=== PATIENT | female | born 1965 | race Caucasian/White ===

== ENCOUNTER 2021-03-30 15:12 | Observation (INO) | payer OTHER, SELFPAY ==
[2021-03-30] VITALS (15 sets, daily range): BP systolic 100–162; BP diastolic 56–91; PULSE 78–106; RESP 12–18; TEMP 36.9–43; O2SAT 95–98; BMI 29.2
--- NOTE | 2021-03-30 15:39 | HMH.EDGENADL ---
ED Disposition Clinical Impression: Acute appendicitis Qualifiers: Acute appendicitis type: with localized peritonitis Appendicitis gangrene presence: without gangrene Appendicitis perforation presence: without perforation Appendicitis abscess presence: without abscess Qualified Code(s): K35.30 - Acute appendicitis with localized peritonitis, without perforation or gangrene Disposition: Still a Patient Condition on Discharge: Fair Referrals: Mary Carmen Charlton [Primary Care Provider] - - Critical Care Critical Care Time: No Attestation: On 03/30/21, the high probability of a clinically significant, sudden or life threatening deterioration of the following system(s) required my full and direct attention, intervention and personal management. The time I documented below is in addition to time spent performing reported procedures but includes the following listed in this critical care notation. Medical Decision Making - Arley Inquiry Pt receiving controlled substance: Yes Arley was queried for this patient: Yes Risks and benefits of using a controlled substance: were discussed with pt by me Vital Signs: 03/30/21 15:13 Temperature 98.4 F Temperature Source Oral Pulse Rate [Left Radial] 106 H Respiratory Rate 18 Blood Pressure [Left Arm] 122/91 H Blood Pressure Mean [Left Arm] 101 Blood Pressure Source [Left Arm] Automatic Cuff Blood Pressure Position [Left Arm] Sitting 02 Sat by Pulse Oximetry 98 Oxygen Delivery Method Room Air - Lab Data Lab Results 03/30/21 15:35: Urine Color Yellow, Urine Appearance Clear, Urine pH 6.0, Ur Specific [place] 1.020, Urine Protein Negative, Urine Glucose (UA) Negative, Urine Ketones Trace, Urine Blood Trace-i, Urine Nitrate Negative, Urine Bilirubin Negative, Urine Urobilinogen 0.2, Ur Leukocyte Esterase Negative, Urine RBC Occasional, Urine WBC None, Ur Squamous Epith Cells 5-10, Urine Bacteria None 03/30/21 15:35: WBC 5.7, RBC 4.32, Hgb 14.0, Hct 40.3, MCV 93.4, MCH 32.5 H, MCHC 34.8, RDW 13.0, Plt Count 321, MPV 7.4, Neut % (Auto) 61.2, Lymph % (Auto) 25.9, [place] % (Auto) 10.5 H, Eos % (Auto) 1.4, Baso % (Auto) 1.0, Neut # (Auto) 3.5, Lymph # (Auto) 1.5, [place] # (Auto) 0.6, Eos # (Auto) 0.1, Baso # (Auto) 0.1 03/30/21 15:35: Sodium 128 L, Potassium 3.9, Chloride 89 L, Carbon Dioxide 29, Anion Gap 13.9, BUN 8, Creatinine 0.90, Estimated Creat Clear 87, Estimated GFR 65, Est GFR ( Amer) 79, Glucose 114 H, Calcium 9.7, Total Bilirubin 0.9, AST 50 H, ALT 65, Alkaline Phosphatase 92, Total Protein 7.9, Albumin 4.7, Globulin 3.2, Albumin/Globulin Ratio 1.5, Amylase 48, Lipase 62 Result diagrams: 03/30/21 15:35 03/30/21 15:35 Orders (Tests/Meds): ED MEDICATIONS Generic Name Dose Route Start Last Admin Trade Name Freq PRN Reason Stop Dose Admin Hydromorphone HCl 1 mg 03/30/21 17:23 Hydromorphone 4 Mg/Ml Syringe IV 03/30/21 17:24 ONCE ONE Ondansetron HCl 4 mg 03/30/21 17:23 Ondansetron 4mg/2ml Vial IV 03/30/21 17:24 ONCE ONE Discontinued Medications Generic Name Dose Route Start Last Admin Trade Name Freq PRN Reason Stop Dose Admin Iopamidol 70 ml 03/30/21 16:14 03/30/21 16:15 Iopamidol-370 (76%);100ml Bottle IV 03/30/21 16:15 70 ml ONCE ONE Administration Sodium Chloride 1,000 ml 03/30/21 15:49 03/30/21 15:55 Sodium Chloride 0.9% 1000ml Bag IV 03/30/21 15:50 1,000 ml BOLUS ONE Administration Sodium Chloride 10 ml 03/30/21 16:14 03/30/21 16:15 Sodium Chloride 0.9% 10ml Syr (Rad Only) IV 03/30/21 16:15 10 ml ONCE ONE Administration - CT Data CT Scan: Abdomen, Pelvis Time Received: 17:[address] Reviewed: Yes: I discussed the CT results w/the radiologist, I have viewed the radiologist's interpretation Findings Narrative: PROCEDURE INFORMATION: Exam: CT Abdomen And Pelvis With Contrast Exam date and time: 03/30/2021 3:40 PM Age: 55 years old Clinical indication: Abdominal pain; Localized; Right low
--- NOTE | 2021-03-30 15:40 | CT_ITS ---
PROCEDURE INFORMATION: Exam: CT Abdomen And Pelvis With Contrast Exam date and time: 03/30/2021 3:40 PM Age: 55 years old Clinical indication: Abdominal pain; Localized; Right lower quadrant (rlq); Additional info: Rlq pain TECHNIQUE: Imaging protocol: Computed tomography of the abdomen and pelvis with contrast. Radiation optimization: All CT scans at this facility use at least one of these dose optimization techniques: automated exposure control; mA and/or kV adjustment per patient size (includes targeted exams where dose is matched to clinical indication); or iterative reconstruction. Contrast material: ISOVUE; Contrast volume: 75 ml; Contrast route: IV; COMPARISON: No relevant prior studies available. FINDINGS: Lungs: No acute findings in the visualized lower lungs. No consolidation. Liver: Heterogeneous liver attenuation/enhancement, most likely extensive patchy fatty change. Upper normal liver size. No discrete mass. Gallbladder and bile ducts: The gallbladder is unremarkable. No calcified stones or biliary dilatation. Pancreas: The pancreas is normal. Spleen: The spleen is normal. Adrenal glands: The adrenal glands are normal. Kidneys and ureters: The kidneys are normal. The ureters are normal. Stomach and bowel: There is no evidence of intestinal perforation or obstruction.The stomach is normal. Appendix: Findings of acute appendicitis. The appendix is distended with fluid, measuring up to 1.3 cm diameter, with prominent surrounding mesenteric edema/infiltrative changes. There is trace fluid in the right pericolic gutter. No organized abscess collection. No extraluminal gas bubbles. No calcified appendicolith. Intraperitoneal space: There is no free intraperitoneal air. Trace fluid in the right pericolic gutter, no organized abscess collection. Vasculature: There is no aortic aneurysm.The vasculature demonstrates scattered mild atherosclerotic calcification. No portal venous gas. Lymph nodes: No significantly enlarged lymph nodes by short axis criteria. Urinary bladder: The bladder is normal. Reproductive: Post hysterectomy. No acute reproductive findings. Bones/joints: There are spinal degenerative changes, with multilevel disc disease and spondylosis, facet arthropathy. No acute fracture or high-grade listhesis. Soft tissues: There are no soft tissue masses or fluid collections. IMPRESSION: 1. Findings of acute appendicitis; dilated fluid-filled appendix with prominent surrounding mesenteric edema and trace pericolic fluid. No organized abscess collection or extraluminal gas bubbles. 2. Additional nonemergency and chronic appearing findings as above.
[2021-03-30 15:51] LABS: Microscopic, Urine URINE MICROSCOPIC (MICROSCOPIC)
[2021-03-30 15:56] LABS: Basophils # 0.1 K/mm3 (0-0.2); Eosinophils # 0.1 K/mm3 (0.0-0.4); Eosinophils % 1.4 % (0.1-12.0); Hematocrit 40.3 % (37.0-47.0); Lymphocytes # 1.5 K/mm3 (0.7-4.5); Lymphocytes % 25.9 % (10-50); Mean Corpuscular HGB Conc 34.8 g/dL (31.8-35.4); Mean Corpuscular Hemoglobin 32.5 pg (27.0-31.2); Mean Corpuscular Volume 93.4 fl (81-99); Mean Platelet Volume 7.4 fl (7.4-10.4); Monocytes # 0.6 K/mm3 (0.1-1.0); Monocytes % 10.5 % (1.7-9.3); Neutrophils # 3.5 K/mm3 (1.8-7.8); Neutrophils % 61.2 % (37.0-80.0); Platelet Count 321 K/mm3 (142-424); Red Blood Count 4.32 M/mm3 (4.20-5.40); White Blood Count 5.7 K/mm3 (4.8-10.8)
[2021-03-30 16:00] LABS: Appearance,Urine CLEAR (Clear); Bilirubin,Urine Negative (Negative); Blood, Urine TRACE-I (Negative); Color,Urine YELLOW (Yellow); Glucose,Urine (UA) Negative (Negative); Ketones,Urine TRACE (Negative); Leukocyte Esterase,Urine Negative (Negative); Nitrate,Urine Negative (Negative); Protein,Urine Negative (Negative); Urobilinogen,Urine 0.2 EU/dl (0.2)
[2021-03-30 16:02] LABS: Chloride 89 mmol/L (98-107); Potassium 3.9 mmoL/L (3.5-5.1); Sodium 128 mmol/L (136-145)
[2021-03-30 16:04] LABS: Amylase 48 U/L (30-110); Blood Urea Nitrogen 8 mg/dl (7-17); Creatinine Clearance Estimated 87 mL/min (50-200); Estimated Glomerular Filt Rate 65 ml/min (>60); GFR (African American) 79 ML/MIN (>60)
[2021-03-30 16:05] LABS: Alanine Aminotransferase 65 U/L (12-78); Albumin Level 4.7 g/dl (3.5-5.0); Albumin/Globulin Ratio 1.5 (1.1-1.8); Alkaline Phosphatase 92 U/L (38-126); Anion Gap 13.9 mEq/L (5-15); Aspartate Amino Transferase 50 U/L (14-36); Bilirubin,Total 0.9 mg/dl (0.2-1.3); Calcium 9.7 mg/dl (8.4-10.2); Carbon Dioxide 29 mmol/L (22.0-30.0); Globulin 3.2 g/dL (1.3-3.2); Glucose 114 mg/dl (74-100); Lipase 62 U/L (23-300); Total Protein,Serum 7.9 g/dl (6.3-8.2)
[2021-03-30 16:19] LABS: RBC,Urine Occasional #/hpf (0-3)
--- NOTE | 2021-03-30 16:21 | PC.NURSE ---
Pt returned from RAD
--- NOTE | 2021-03-30 17:20 | PC.NURSE ---
speaking with Dr Guajardo at this time.
--- NOTE | 2021-03-30 17:35 | PC.NURSE ---
COVID swab sent to lab at this time.
[2021-03-30 17:37] LABS: Coronavirus 19, PCR Not Detected (NotDetected); Influenza A, PCR Not Detected (NotDetected); Influenza B, PCR Not Detected (NotDetected)
--- NOTE | 2021-03-30 17:42 | PC.NURSE ---
[id number] Guajardo to page the surgery team for appendectomy. calls returned as follows: [phone] Carl [id number] Negar [phone] Kaila
--- NOTE | 2021-03-30 17:55 | PC.NURSE ---
Dr Guajardo at bedside
--- NOTE | 2021-03-30 17:56 | PC.NURSE ---
Dr Guajardo at bedside
--- NOTE | 2021-03-30 18:14 | HMH.GSHP ---
HPI HPI: Patient is a 55-year-old pleasant female. She states that 2 days ago she had some diarrhea. She had taken some Imodium. Yesterday on 03/29/2021 she had developed some right-sided abdominal pain with associated dry heaves. This had transiently improved overnight but then recurred this morning. Due to its recurrence and severity she presented to the emergency department. She was seen and evaluated. Work-up included CT scan which revealed dilated fluid-filled appendix with inflammatory changes consistent with acute appendicitis. Surgical consultation was obtained. [facility] History I have reviewed the patient's past medical history: Yes *Have you ever received a pneumonia vaccine?: No *Have you received a flu vaccine this season?: No - *Social History Smoking Status: Unknown if ever smoked Alcohol Intake: former Substance Use Type: denies use *Occupational Status:: other *Travel in the last 8 weeks: None Family Hx:: Non-contributory Review of Systems - Review of Systems Review of systems:: pertinent systems reviewed and negative unless documented below Meds Allergies Allergy/AdvReac Type Severity Reaction Status Date / Time No Known Allergies Allergy Verified 03/30/21 15:40 Exam Vital signs and Labs for Last 24 Hours: Temp Pulse Resp BP Pulse Ox 98.4 F 106 H 18 122/91 H 98 03/30/21 15:13 03/30/21 15:13 03/30/21 15:13 03/30/21 15:13 03/30/21 15:13 Laboratory Results - last 24 hr 03/30/21 15:35: Urine Color Yellow, Urine Appearance Clear, Urine pH 6.0, Ur Specific [place] 1.020, Urine Protein Negative, Urine Glucose (UA) Negative, Urine Ketones Trace, Urine Blood Trace-i, Urine Nitrate Negative, Urine Bilirubin Negative, Urine Urobilinogen 0.2, Ur Leukocyte Esterase Negative, Urine RBC Occasional, Urine WBC None, Ur Squamous Epith Cells 5-10, Urine Bacteria None 03/30/21 15:35: WBC 5.7, RBC 4.32, Hgb 14.0, Hct 40.3, MCV 93.4, MCH 32.5 H, MCHC 34.8, RDW 13.0, Plt Count 321, MPV 7.4, Neut % (Auto) 61.2, Lymph % (Auto) 25.9, [place] % (Auto) 10.5 H, Eos % (Auto) 1.4, Baso % (Auto) 1.0, Neut # (Auto) 3.5, Lymph # (Auto) 1.5, [place] # (Auto) 0.6, Eos # (Auto) 0.1, Baso # (Auto) 0.1 03/30/21 15:35: Sodium 128 L, Potassium 3.9, Chloride 89 L, Carbon Dioxide 29, Anion Gap 13.9, BUN 8, Creatinine 0.90, Estimated Creat Clear 87, Estimated GFR 65, Est GFR ( Amer) 79, Glucose 114 H, Calcium 9.7, Total Bilirubin 0.9, AST 50 H, ALT 65, Alkaline Phosphatase 92, Total Protein 7.9, Albumin 4.7, Globulin 3.2, Albumin/Globulin Ratio 1.5, Amylase 48, Lipase 62 03/30/21 17:32: SARS-CoV-2 (PCR) Not detected, Influenza A Untype (PCR) Not detected, Influenza Type B (PCR) Not detected I & O for Last 24 hours: Intake & Output 03/28/21 03/29/21 03/30/21 03/31/21 11:59 11:59 11:59 11:59 Weight 170 lb - Constitutional no acute distress - *Routine HEENT Exam Head: Present: normocephalic Eye: Present: EOMI, PERRL ENT: Present: mucous membranes moist - *Routine Neck Exam Present: supple. Absent: lymphadenopathy - *Routine Respiratory Exam Present: CTA bilaterally - *Routine Cardiovascular Exam Present: RRR - *Routine Abdominal Exam Present: soft, normoactive bowel sounds, tenderness Comments: She is tender in the right lower quadrant and right upper quadrant. - *Routine Rectal Exam Rectal:: deferred - *Routine Genitalia Exam Genitalia:: deferred - *Routine Extremities Exam Absent: cyanosis, clubbing, edema - *Routine Skin Exam Present: warm. Absent: rash - *Routine Neurological Exam Present: alert, oriented X3 Results - Results Lab Results Last 24 Hours:: Laboratory Results - last 24 hr 03/30/21 15:35: Urine Color Yellow, Urine Appearance Clear, Urine pH 6.0, Ur Specific [place] 1.020, Urine Protein Negative, Urine Glucose (UA) Negative, Urine Ketones Trace, Urine Blood Trace-i, Urine Nitrate Negative, Urine Bilirubin Negative, Urine Urobilinogen 0.2, Ur Leukocyte Esterase Ne
--- NOTE | 2021-03-30 19:08 | HMH.ANESCL ---
[facility] Anesthesia Checklist - Patient Identification Patient Identification: Arm Band - Structural Data Planned Operative Procedure/s: Laparoscopic Appendectomy Consent for Planned Operative Procedure(s) Verified: Yes Verified Documents: Surgical Consent, History and Physical - NPO Status Verified Time NPO: 11:00 - Additional verifications Anesthesia Reactions: No - Airway Assessment C-Spine Mobility Assessed: Yes (mp2) TMJ Mobility Assessed: Yes Dentition: Good Dentition - Neurological Assessment Level of Consciousness: Awake, Alert - Anesthesia Plan Anesthesia Risk discussed: Yes Anesthesia Plan: Verified ASA Class: II (e) Anesthesia Type: General [facility] History I have reviewed the patient's past medical history: Yes Medical History: Reports:: Anxiety, Hypertension *Have you ever received a pneumonia vaccine?: No *Have you received a flu vaccine this season?: No Other Medical History: Reports: Hypothyroidism Anesthesia experience/problems:: nac Other Surgeries: Yes: Hysterectomy-Total, Other - *Social History Smoking Status: Unknown if ever smoked Alcohol Intake: former Alcohol Intake Frequency:: other Substance Use Type: denies use *Occupational Status:: other *Travel in the last 8 weeks: None Family Hx:: Non-contributory
--- NOTE | 2021-03-30 20:38 | HMH.ANESI ---
[facility] Anesthesia Record Part I Intake, IV Amount: 1,200 Estimated blood loss (mL): 10 Urine output (mL): 600 Blood Pressure: 162/78 SaO2: 95 Pulse Rate: 101 Respiratory Rate: 16 Temperature: 99.3 F Patient is:: Drowsy, Stable Stable to PACU at:: 20:30
--- NOTE | 2021-03-30 20:41 | HMH.OPNOTE ---
Date of procedure: 03/30/21 Pre-op Diagnosis:: Acute appendicitis Post-op Diagnosis:: Same Procedure performed:: Laparoscopic appendectomy Surgeon:: Ren Guajardo MD INSPECTOR ELECTROMECHANICAL:: Carl Shafer Anesthesia: VIOLA Estimated blood loss (mL): 40 Clinical Note:: Patient is a 55-year-old pleasant female. She states that 2 days ago she had some diarrhea. She had taken some Imodium. Yesterday on 03/29/2021 she had developed some right-sided abdominal pain with associated dry heaves. This had transiently improved overnight but then recurred this morning. Due to its recurrence and severity she presented to the emergency department. She was seen and evaluated. Work-up included CT scan which revealed dilated fluid-filled appendix with inflammatory changes consistent with acute appendicitis. Surgical consultation was obtained. Patient was seen and examined in the emergency department. Plan was made for emergent appendectomy. Operative findings:: Patient had a severely inflamed acute appendicitis which was retrocecal. Exposure and dissection was extremely difficult. She also had omental adhesions in the lower abdomen and pelvis from previous gynecologic surgery. Severe acute on chronic inflammation and fibrosis with fibrinopurulent exudate of appendix Operative note:: Patient was taken the operating room. She was positioned in a supine position. General anesthesia was induced via endotracheal tube. Powers catheter was placed. Abdomen was prepped and draped in the standard surgical fashion. Subumbilical skin incision was made. While performing abdominal wall lift Veress needle was inserted. CO2 pneumoperitoneum was achieved to 15 mmHg. 12 mm optical trocar was inserted at the umbilicus. Intraperitoneal contents were visualized. There were omental adhesions in the lower abdomen from the umbilicus inferiorly. This ultimately required placement of right upper abdominal trocar as traditionally performed and an additional left upper abdominal 5 mm trocar for dissection. Omental adhesions were taken down using NAYAN ultrasonic harmonic tamie. Additional 5 mm trocar was inserted in the left lower abdomen. There was a significant inflammatory response in the right lower quadrant. Initially the appendix was unable to be identified but there was significant induration and inflammation. Appendix was retrocecal. The cecum was mobilized medially by incising the peritoneal attachments using NAYAN ultrasonic harmonic tamie and some Metzenbaum dissection. There was intense acute on chronic inflammatory process involving the appendix. It was inflamed, indurated, with chronic fibrosis and acute inflammation with some exudate. Prolonged dissection was carried out. The ileum was adherent to the peritoneum and this required laparoscopic adhesiolysis as well using mostly laparoscopic Metzenbaum dissection. Very prolonged dissection was carried out of the appendix. Ultimately the mesoappendix was able to the slowly divided with NAYAN ultrasonic robotic tamie. There was some minor oozing from the appendiceal artery prior to dividing and this was clipped with a Hemoclip and then divided with NAYAN ultrasonic harmonic tamie. Dissection was carried down to the appendiceal base. The appendix was divided at its base with an endoscopic DEEPTHI linear cutting stapling device. The appendix was placed within an Endo Catch retrieval device and removed from the peritoneal cavity via the umbilical trocar site. Pericecal space and perihepatic region were irrigated and aspirated until clear. There appeared to be good hemostasis. Residual fluid in the pelvis was aspirated. Trochars were then removed as CO2 pneumoperitoneum was evacuated. Fascia at the umbilicus was closed with a couple of interrupted 0 Vicryl sutures. Local anesthetic was infiltrated. Skin incisions were closed with 4-0 Monocryl subcuticular fashion. Steri-Strips and dressings were applied. Patient may benefit ul
--- NOTE | 2021-03-30 21:01 | SUR.PHASEI ---
2058- detailed report called to primo rowell on [facility] floor at this time.
--- NOTE | 2021-03-30 21:07 | PC.NURSE ---
patient up to floor via stretcher @ this time.
--- NOTE | 2021-03-30 21:12 | SUR.PHASEI ---
2049- Powers catheter D/C at this time.
[2021-03-30 21:24] LABS: Microscopic,Cath URINE MICROSCOPIC (MICROSCOPIC)
[2021-03-30 21:38] LABS: Appearance,Urine/Cath CLEAR (Clear); Bilirubin,Cath Negative (Negative); Blood, Urine/Cath TRACE-L (Negative); Color,Urine/Cath YELLOW (Yellow); Glucose,Urine/Cath (UA) Negative (Negative); Ketones,Urine/Cath Negative (Negative); Leukocyte Esterase,Cath Negative (Negative); Nitrate,Cath Negative (Negative); Protein,Urine/Cath Negative (Negative); Specific Gravity, Urine/Cath <= 1.005 (1.005-1.030); Urobilinogen,Cath 0.2 EU/dl (0.2)
[2021-03-30 21:50] LABS: RBC,Urine/Cath Occasional # /hpf (0-3)
[2021-03-31] VITALS (9 sets, daily range): BP systolic 108–161; BP diastolic 61–91; PULSE 78–105; RESP 15–19; TEMP 36.4–37.4; O2SAT 96–99; BMI 29.3
--- NOTE | 2021-03-31 05:15 | PC.NURSE ---
Pt a&o x 4, rested well t/o night. Pain was controlled with medication per mar. SS drainage noted on dressing to umbilicus this RN re-enforced dressing with 2x2 and tegaderm. Pt ambulated to restroom with assistance x 1. Call mccoy in reach will continue to monitor.
[2021-03-31 06:56] LABS: Basophils % 0.2 % (0.1-2.0); Hematocrit 33.3 % (37.0-47.0); Lymphocytes # 0.7 K/mm3 (0.7-4.5); Lymphocytes % 18.3 % (10-50); Mean Corpuscular HGB Conc 34.8 g/dL (31.8-35.4); Mean Corpuscular Hemoglobin 32.1 pg (27.0-31.2); Mean Corpuscular Volume 92.2 fl (81-99); Mean Platelet Volume 7.6 fl (7.4-10.4); Monocytes # 0.4 K/mm3 (0.1-1.0); Monocytes % 9.4 % (1.7-9.3); Neutrophils # 2.9 K/mm3 (1.8-7.8); Neutrophils % 72.1 % (37.0-80.0); Platelet Count 273 K/mm3 (142-424); Red Blood Count 3.61 M/mm3 (4.20-5.40); Red Cell Distribution Width 12.8 % (11.5-17.5)
[2021-03-31 07:09] LABS: Anion Gap 10.2 mEq/L (5-15); Blood Urea Nitrogen 7 mg/dl (7-17); Carbon Dioxide 28 mmol/L (22.0-30.0); Chloride 100 mmol/L (98-107); Creatinine Clearance Estimated 113 mL/min (50-200); Estimated Glomerular Filt Rate 87 ml/min (>60); GFR (African American) 106 ML/MIN (>60); Glucose 117 mg/dl (74-100); Potassium 4.2 mmoL/L (3.5-5.1); Sodium 134 mmol/L (136-145)
[2021-03-31 07:21] LABS: Hemoglobin 11.6 g/dL (12.2-16.2)
--- NOTE | 2021-03-31 08:54 | HMH.PHAVTE ---
[facility] Pharmacy VTE Monitoring - Patient Demographics Admission date: 03/30/21 Report Date: 03/31/21 Time: 08:55 Allergies/Adverse Reactions: Patient Allergies No Known Allergies Allergy (Verified 03/30/21 15:40) Height: 1.63 m Weight: 78.018 kg Patient Problems: Current Active Problems Acute appendicitis (Acute) - VTE Risk Labs: VTE Related Lab Results Hgb 11.6 g/dL (12.2-16.2) L D 03/31/21 06:20 Hct 33.3 % (37.0-47.0) L 03/31/21 06:20 Plt Count 273 K/mm3 (142-424) 03/31/21 06:20 BUN 7 mg/dl (7-17) 03/31/21 06:20 Creatinine 0.70 mg/dl (0.52-1.04) D 03/31/21 06:20 Estimated Creat Clear 113 mL/min (50-200) 03/31/21 06:20 VTE Risk Level: Low Risk - Prophylaxis VTE Prophylaxis Ordered?: Yes Types of VTE Prophylaxis: IPCS Thigh High Location of Applied Device: Bilateral Lower Extremeties
--- NOTE | 2021-03-31 08:55 | HMH.PHAINT ---
MEDICATION RECONCILIATION COMPLETED ON PATIENT USING EXTERNAL FILL HISTORY FROM PHARMACY AND NOAH REPORT. -[facility]
--- NOTE | 2021-03-31 09:38 | PC.NURSE ---
Pt requests being able to eat. pt states she has been npo since 1900 last night. spoke with Dr Guajardo at approx 0910. pt ok to have full liquids at this time.
--- NOTE | 2021-03-31 10:18 | P.PN_ITS ---
Subjective Patient reports: feels better Narrative: Patient is having some gassiness and bloating. Tolerated a bit of broth this morning. Progress Note: A&P Assessment and Plan for All Diagnoses:: Clear liquid diet today. Continue inpatient management due to potential for ile us likely secondary to significant inflammation and operative manipulation of the bowel. Exam Vital signs and Labs for Last 24 Hours: Temp Pulse Resp BP Pulse Ox 98.1 F 79 15 124/61 98 03/31/21 07:59 03/31/21 07:59 03/31/21 07:59 03/31/21 07:59 03/31/21 07:59 Laboratory Results - last 24 hr 03/30/21 15:35: Urine Color Yellow, Urine Appearance Clear, Urine pH 6.0, Ur Specific [place] 1.020, Urine Protein Negative, Urine Glucose (UA) Negative, Urine Ketones Trace, Urine Blood Trace-i, Urine Nitrate Negative, Urine Bilirubin Negative, Urine Urobilinogen 0.2, Ur Leukocyte Esterase Negative, Urine RBC Occasional, Urine WBC None, Ur Squamous Epith Cells 5-10, Urine Bacteria None 03/30/21 15:35: WBC 5.7, RBC 4.32, Hgb 14.0, Hct 40.3, MCV 93.4, MCH 32.5 H, MCHC 34.8, RDW 13.0, Plt Count 321, MPV 7.4, Neut % (Auto) 61.2, Lymph % (Auto) 25.9, [place] % (Auto) 10.5 H, Eos % (Auto) 1.4, Baso % (Auto) 1.0, Neut # (Auto) 3.5, Lymph # (Auto) 1.5, [place] # (Auto) 0.6, Eos # (Auto) 0.1, Baso # (Auto) 0.1 03/30/21 15:35: Sodium 128 L, Potassium 3.9, Chloride 89 L, Carbon Dioxide 29, Anion Gap 13.9, BUN 8, Creatinine 0.90, Estimated Creat Clear 87, Estimated GFR 65, Est GFR ( Amer) 79, Glucose 114 H, Calcium 9.7, Total Bilirubin 0.9, AST 50 H, ALT 65, Alkaline Phosphatase 92, Total Protein 7.9, Albumin 4.7, Globulin 3.2, Albumin/Globulin Ratio 1.5, Amylase 48, Lipase 62 03/30/21 17:32: SARS-CoV-2 (PCR) Not detected, Influenza A Untype (PCR) Not detected, Influenza Type B (PCR) Not detected 03/30/21 18:40: Urine Color Yellow, Urine Appearance Clear, Urine pH 7.0, Ur Specific [place] <= 1.005, Urine Protein Negative, Urine Glucose (UA) Negative, Urine Ketones Negative, Urine Blood Trace-l, Urine Nitrate Negative, Urine Bilirubin Negative, Urine Urobilinogen 0.2, Ur Leukocyte Esterase Negative, Urine RBC Occasional, Urine WBC None, Ur Squamous Epith Cells None, Urine B acteria None 03/31/21 06:20: WBC 4.0 L D, RBC 3.61 L, Hgb 11.6 L D, Hct 33.3 L, MCV 92.2, MCH 32.1 H, MCHC 34.8, RDW 12.8, Plt Count 273, MPV 7.6, Neut % (Auto) 72.1, Lymph % (Auto) 18.3, [place] % (Auto) 9.4 H, Eos % (Auto) 0.0 L, Baso % (Auto) 0.2, Neut # (Auto) 2.9, Lymph # (Auto) 0.7, [place] # (Auto) 0.4, Eos # (Auto) 0.0, Baso # (Auto) 0.0 03/31/21 06:20: Sodium 134 L, Potassium 4.2, Chloride 100, Carbon Dioxide 28, Anion Gap 10.2, BUN 7, Creatinine 0.70 D, Estimated Creat Clear 113, Estimated GFR 87, Est GFR ( Amer) 106 D, Glucose 117 H, Calcium 9.0 I & O for Last 24 hours: Intake & Output 03/28/21 03/29/21 03/30/21 03/31/21 11:59 11:59 11:59 11:59 Intake Total 1200 / 1200 Balance 1200 / 1200 Weight 172 lb - *Routine Abdominal Exam Present: soft
--- NOTE | 2021-03-31 14:49 | PC.NURSE ---
PT IS RESTING IN BED. MEDICATED PER MAR FOR ABDOMINAL DISCOMFORT. DRESSINGS TO THE ABDOMEN INTACT. ABDOMEN TENDER/DISTENDED. PT STATES SHE HAS BEEN PASSING FLATUS. TOLERATING FULL LIQUIDS. AMBULATES TO THE BATHROOM AND AROUND THE ROOM. WILL CONTINUE TO MONITOR.
[2021-04-01 04:00] VITALS: BP 132/66; PULSE 97; RESP 16; TEMP 36.9; O2SAT 97
--- NOTE | 2021-04-01 04:35 | PC.NURSE ---
Pt has rested well this shift. C/O discomfort x1. She states that she feels better and would like to go home. DSGs intact with no change. VSS. Will continue to monitor.
[2021-04-01 05:21] VITALS: BMI 29.2
[2021-04-01 08:00] VITALS: BP 156/92; PULSE 87; RESP 15; TEMP 36.8; O2SAT 98
--- NOTE | 2021-04-01 10:14 | HMH.GSPN ---
Subjective Patient reports: no new complaints, feels better, flatus Progress Note: A&P Assessment and Plan for All Diagnoses:: Plan for discharge home Exam Vital signs and Labs for Last 24 Hours: Temp Pulse Resp BP Pulse Ox 98.2 F 87 15 156/92 H 98 04/01/21 08:00 04/01/21 08:00 04/01/21 08:00 04/01/21 08:00 04/01/21 08:00 I & O for Last 24 hours: Intake & Output 03/29/21 03/30/21 03/31/21 04/01/21 11:59 11:59 11:59 11:59 Intake Total 1200 / 1200 840 / 840 Balance 1200 / 1200 840 / 840 Weight 172 lb 171 lb 9.6 oz - *Routine Abdominal Exam Present: soft
--- NOTE | 2021-04-01 10:16 | HMH.DCSUM ---
General - General Admission date:: 03/30/21 Discharge date: 04/01/21 HPI HPI: Patient is a 55-year-old pleasant female. She states that 2 days prior to presentation she had some diarrhea. She had taken some Imodium. On 03/29/2021 she had developed some right-sided abdominal pain with associated dry heaves. This had transiently improved overnight but then recurred on the morning of 03/30/21. Due to its recurrence and severity she presented to the emergency department. She was seen and evaluated. Work-up included CT scan which revealed dilated fluid-filled appendix with inflammatory changes consistent with acute appendicitis. Surgical consultation was obtained. Patient was seen and examined in the emergency department. Plan was made for emergent appendectomy. Hospital Course Hospital Course: Patient was taken to the operating room. She underwent laparoscopic appendectomy. She was found to have had a severely inflamed acute appendicitis which was retrocecal. Exposure and dissection was extremely difficult. She also had omental adhesions in the lower abdomen and pelvis from previous gynecologic surgery. Severe acute on chronic inflammation and fibrosis with fibrinopurulent exudate of appendix. Please see operative dictation for complete details. Postoperatively she was admitted for inpatient convalescence. She was continued on intravenous antibiotics consisting of Unasyn. Following morning she was feeling better. She did complain of some abdominal gassiness and mild bloating likely secondary to ileus secondary to operative procedure and inflammation. She was limited to a clear liquid diet. She was given simethicone as needed. The following day she was doing much better. She was passing gas. She had decreased bloating. She was anxious to discharge home. Objective Vital signs: Temp Pulse Resp BP Pulse Ox 98.2 F 87 15 156/92 H 98 04/01/21 08:00 04/01/21 08:00 04/01/21 08:00 04/01/21 08:00 04/01/21 08:00 Discharge Plan - Patient Discharge Instructions ACTIVITY: No heavy lifting DIET: advance to your usual diet Patient Instructions: Appendicitis, Surgical Site Infection, Appendectomy -- Laparoscopic Surgery - Follow up Plan Follow up with: Mary Carmen Charlton [Primary Care Provider] - Ren Guajardo MD [Staff Physician] - 2 weeks Disposition: Home, Self-Care Condition at discharge:: Improved Home Medications: Home Medications Medication Instructions Recorded Confirmed Type Levothyroxine Sodium 50 mcg PO DAILY 03/30/21 03/30/21 History [Levothyroxine 50mcg (0.05mg) Tab] Omeprazole [Omeprazole 20mg 20 mg PO DAILY 03/30/21 03/30/21 History Capsule] buPROPion HCL [Bupropion Xl] 150 mg PO DAILY 03/30/21 03/30/21 History Citalopram Hydrobromide 40 mg PO DAILY 03/31/21 03/31/21 History [Citalopram 40mg Tablet] Ergocalciferol (Vitamin D2) 50,000 units PO WEEKLY 03/31/21 03/31/21 History [Drisdol 50,000 units (1.25mg) capsule] Tramadol HCl [Tramadol 50mg 50 mg PO Q4HP PRN 03/31/21 03/31/21 History Tab] lisinopriL [Zestril 20mg tab] 20 mg PO DAILY 03/31/21 03/31/21 History Oxycodone HCl/Acetaminophen 1 tab PO Q4H PRN #15 tab 04/01/21 Rx [Percocet 5/325mg tablet] Prescriptions/Medication Reconciliation: New Oxycodone HCl/Acetaminophen [Percocet 5/325mg tablet] 1 tab PO Q4H PRN #15 tab PRN Reason: Moderate Pain Continued Levothyroxine Sodium [Levothyroxine 50mcg (0.05mg) Tab] 50 mcg PO DAILY buPROPion HCL [Bupropion Xl] 150 mg PO DAILY Citalopram Hydrobromide [Citalopram 40mg Tablet] 40 mg PO DAILY lisinopriL [Zestril 20mg tab] 20 mg PO DAILY Tramadol HCl [Tramadol 50mg Tab] 50 mg PO Q4HP PRN PRN Reason: Moderate Pain Omeprazole [Omeprazole 20mg Capsule] 20 mg PO DAILY Ergocalciferol (Vitamin D2) [Drisdol 50,000 units (1.25mg) capsule] 50,000 units PO WEEKLY - Problem Reconci
[2021-04-02 10:08] VITALS: BP 131/80; PULSE 92; TEMP 37.2
--- NOTE | 2021-04-02 10:08 | HMH.ANESII ---
[facility] Anesthesia Record Part II Discharge Time: 21:00 Destination: Medical Surgical Department PACU nurse assessment reviewed?: Yes Patient Condition:: Good Anesthesia Complications:: None Swallowing reflex intact?: Yes Cyanosis?: No Blood Pressure: 131/80 Pulse Rate: 92 Temperature: 99 F Mental Status: Alert & Oriented Pain level:: 0 Nausea and/or vomitting:: None Intake, IV Amount: 0
== END 2021-04-01 11:17 | disposition home or self-care (01) ==
LOC: ER 17:25 → SDC 18:29 → 2ND 18:56
PROVIDERS: Admitting Provider Surgery; Emergency Provider Emergency Medicine; PCP Family Medicine; Visit Provider Surgery
PROC: 0DTJ4ZZ Resection of Appendix, Percutaneous Endoscopic Approach (ICD-10-PCS; CPT 44970; principal; 2021-03-30 18:30)
DX: K35.80 Unspecified acute appendicitis (principal)
CPT/HCPCS: 44970; 36415; 74177; 80048; 80053; 81001; 82150; 83690; 85025; 96365; 96375; 99284; C9803; G0378; J2405; Q9967; U0003; U0005

== ENCOUNTER → 2021-04-14 11:48 | Outpatient (CLI) | payer OTHER, SELFPAY ==
[2021-04-14 11:55] LABS: Adenovirus F 40/41, stool Not Detected (NotDetected); Astrovirus Not Detected (NotDetected); Campylobacter Not Detected (NotDetected); Clostridium Difficile A/B, PCR Not Detected (NotDetected); Cryptosporidium Not Detected (NotDetected); Cyclospora Cayetanesis Not Detected (NotDetected); Entamoeba histolytica Not Detected (NotDetected); Enteroaggregative E coli Not Detected (NotDetected); Enteropathogenic E coli Not Detected (NotDetected); Enterotoxigenic E coli Not Detected (NotDetected); Giardia lamblia Not Detected (NotDetected); Norovirus Not Detected (NotDetected); Plesimonas Shigalloides, PCR Not Detected (NotDetected); Rotavirus A Not Detected (NotDetected); Salmonella, PCR Not Detected (NotDetected); Sapovirus Not Detected (NotDetected); Shiga-like toxin E coli Not Detected (NotDetected); Shigella Enterovasive E coli Not Detected (NotDetected); Vibrio Cholerae Not Detected (NotDetected); Vibrio, PCR Not Detected (NotDetected); Yersinia Entercolitica, PCR Not Detected (NotDetected)
[2021-04-14 18:10] LABS: Occult Blood,Stool Negative (Negative)
[2021-04-18 14:16] LABS: Fats, Neutral Normal (.); Fats, Total Normal (.)
== END ==
PROVIDERS: Visit Provider Family Medicine
DX: R19.7 Diarrhea, unspecified (principal)
CPT/HCPCS: 82272; 82705; 87045; 87177; 87205; 87338; 87506; G0328

== ENCOUNTER 2023-10-16 08:49 | Emergency (ER) | payer OTHER, SELFPAY ==
[2023-10-16] VITALS (7 sets, daily range): BP systolic 108–128; BP diastolic 80–89; PULSE 84–106; RESP 13–20; TEMP 36.7; O2SAT 97–100; BMI 23.3
--- NOTE | 2023-10-16 09:00 | XR_ITS ---
FINAL REPORT CLINICAL HISTORY: fall, injury FINDINGS: Right foot Three views were obtained. There is no acute fracture or dislocation. There are moderate to severe degenerative changes of the 1st metatarsophalangeal joint. No soft tissue abnormality is identified. IMPRESSION: Degenerative changes without acute bony abnormality. Reviewed, Interpreted and Dictated by Ren Hensley III, MD Transcribed by Inessa Huang Authenticated and [facility]
--- NOTE | 2023-10-16 09:00 | XR_ITS ---
FINAL REPORT CLINICAL HISTORY: fall, injury FINDINGS: Right ankle Three views were obtained. There is an oblique fracture of the lateral malleolus with mild distraction. Soft tissue swelling is seen. IMPRESSION: Fracture as above. Reviewed, Interpreted and Dictated by Ren Hensley III, MD Transcribed by Inessa Huang Authenticated and [facility]
--- OUTSIDE RECORDS SUMMARY | 2023-10-16 09:00 | XMS_ITS | Continuity of Care Document ---
Author Name Unknown Address [address] [place], [place] [id number] Organization [facility] Phone Care Team Providers Care Glue Mounter Operator Name Role Phone KERYR AYALA Unavailable [phone] KERRY AYALA Admitting [phone] KERRY AYALA Surgeon [phone] KERRY AYALA Primary Attending OBDULIA ZARAGOZA Primary Care ALLERGIES AND ADVERSE REACTIONS ALLERGIES AND ADVERSE REACTIONS Code System Allergy Substance Adverse Reaction Date Reaction (Severity) Comment Status Reported By Updated By No Known Allergies [id number] on November 06, 2020 5:28:21 PM [facility] ASSESSMENTS Hypertensive disorder ; Hypothyroidism ; PROBLEMS PATIENT PROBLEMS Code Description/Comments Status Updated By [id number] Hypertensive disorder active [id number] on April 15, 2023 11:38:48 AM [facility] [id number] Hypothyroidism active [id number] on 2022 11:38:49 AM [facility] TREATMENT PLAN DISCHARGE MEDICATIONS Status RXNORM Medication Dose Route Frequency Dates Comments U pdated By Patient discharge medication information is not available. PATIENT OPEN ORDERS Code System Description Frequency Occurrences Priority [place] [id number] [facility] Specimen type ONE TIME 0 Routine April 16, 2023 8:40:00 PM [facility] JAMIE PAYNE MD [id number] on April 16, 2023 8:40:00 PM [facility] SCHEDULED PROCEDURES Code System Description Status Scheduled Date Upd ated By Patient scheduled procedure information is not available. MEDICATIONS HOME MEDICATIONS Status RXNORM Medication Dose Route Frequency Dates Comments R eported By Updated By Active [id number] citalopram (CELEXA) 0.0 MG PO DAILY Last Dose: [id number] on April 15, 2023 11:39:02 AM [facility] Active [id number] levothyroxine (SYNTHROID) 0.0 MCG PO DAILY Last Dose: [id number] on April 15, 2023 11:39:09 AM [facility] Active [id number] lisinopril 10 mg tab 0.0 PO DAILY Last Dose: [id number] on April 15, 2023 11:39:13 AM [place] DISCHARGE MEDICATIONS Status RXNORM Medication Dose Route Frequency Dates Comments Physic maddi Updated By No Discharge Medication Info rmation Available INPATIENT MEDICATIONS Status RXNORM Medication Dose Route Frequency Rate Quantity Dates Comments Physician Updated By Discont inued MONOJECT FLUSH SYRINGE 0.9 % SOLN 10.0 ML IV FLUSH TWICE A DAY Start: [facility] er 2022 2:00:0 0 AM [place] End: [facility] er 2022 8:57:0 0 PM [place] SOLANGESINGH BAUTISTA CRNA [id number] on April 17, 2023 5:25:00 AM [place] Discont inued [id number] lactated ringers (LR) SOLN 1000. 0 ML INTRAV ENOUS ONE TIME ADMINISTRA TION (UNSCHEDUL ED) 25.0 ML/HR Start: [facility] er 2022 4:01:0 0 PM [place] End: [facility] er 2022 4:24:0 0 PM UT SOLANGESINGH BAUTISTA HYDRATOR [id number] on April 16, 2023 4:23:00 PM UT Discont inued propofol (DIPRIVAN) 500 MG/50ML EMUL 50.0 ML INTRAV ENOUS ONE TIME ONLY Start: [facility] er 2022 4:20:0 0 PM UTC End: [facility] er 2022 4:20:0 0 PM [place] JAMIE PAYNE MD INTERFAC ED on April 16, 2023 4:19:00 PM [place] SOCIAL HISTORY SOCIAL HISTORY SNOMED-CT Social History Element Description Effective Dates Offered Cessation Comment UpdatedBy [id number] Current Tobacco smoking status Never Smoked [id number] on April 15, 2023 11:38:31 AM [place] SOCIAL HISTORY - Gender Sex: Female SOCIAL HISTORY - Sexual Behavior Sexual Orientation Gender Identity SNOMED-CT Description SNO MED -CT Description Activity Level No of Partners Partner Type UpdatedBy Information is not available VITAL SIGNS PATIENT VITAL SIGNS This section displays the mo st recent value for each vital sign as of April 24, 2023 3:20:33 PM [facility] Loinc Code Vital Sign Activity Date Result Updated By [id number] Body height April 15 11:38:25 AM [place] 165.1 cm (65.0 in) [id number] on April 15, 2023 11:38:25 AM [facility] 17990-6 Body mass index (BMI) [Ratio] April 15, 2023 11:38:25 AM [place] 26.622 kg/m2 [id number] on April 15, 2023 11:38:25 AM [facility] 3140-1 Body Surface Area Derived From Formula April 15, 2023 11:38:25 AM [place] 1.7992 m2 [id number] on April 15, 2023 11:38:25 AM [facility] 15905-6 Body weight Measured April 15, 2023 11:38:25 AM [place] 72.575 kg (160.0 lb) [id number] on April 15, 2023 11:38:25 AM [facility] PEDIATRIC GROWTH CHART - VITAL SIGNS This section displays Head C ircumference Percentile, Weight for Length Percentile and BMI Percentile Loinc Code Pediatric Measure Age (Months) Result Updat ed By No Pediatric Growth Chart Pe rcentile Information Available. HEALTH CONCERNS Problems Concern Status Health Concern problem infor mation not available. Smoking Status Status Years Used Consumed packs p er day Health Concern smoking histo ry information not available. Family History Concern Status Health Concern family histor y information not available. ENCOUNTERS ENCOUNTER INFORMATION Reason for Visit NONINFECTIVE GASTROE NTERITIS AND COLITIS, UNSPECIFIED Admission April 16, 2023 3:57:[address] [id number] Discharge April 16, 2023 8:57:00 PM [facility] DISCHARGED TO HOME OR SELF CARE ENCOUNTER DIAGNOSES Notes information is not ginger ilable. Code System Diagnosis Onset Date Diagnosis information is not available. ABSTRACT DIAGNOSES Code System Diagnosis Updated By K52.9 ICD10 NONINFECTIVE GAS TROENTERITIS AND COLITIS, UNSPECIFIED [id number] on April 24, 2023 3:20:01 PM [facility] K52.9 ICD10 NONINFECTIVE GAS TROENTERITIS AND COLITIS, UNSPECIFIED [id number] on April 24, 2023 3:20:01 PM [facility] R63.4 ICD10 ABNORMAL WEIGHT LOSS [id number] on April 24, 2023 3:20:01 PM UTC I10 ICD10 ESSENTIAL (PRIMARY) HYPERTEN JENNIFFER [id number] on April 24, 2023 3:20:01 PM UTC E03.9 ICD10 HYPOTHYROIDISM, UNSPECIFIED [id number] on April 24, 2023 3:20:01 PM UTC Z79.899 ICD10 OTHER [facility] (CURRENT) DR COONEY THERAPY [id number] on April 24, 2023 3:20:01 PM [place] K29.50 ICD10 UNSPECIFIED DISTRICT COMMERCIAL SUPERINTENDENT ABDELRAHMAN GASTRITIS WITHOUT BLEEDING [id number] on April 24, 2023 3:20:01 PM UT K62.1 ICD10 RECTAL POLYP [id number] on Dece [id number] 3:20:01 PM [place] CARE TEAM Care Glue Mounter Operator Role KERRY AYALA Referring KERRY AYALA Admitting KERRY AYALA Surgeon KERRY AYALA Primary Attending OBDULIA ZARAGOZA [facility] DISCHARGE INSTRUCTION DISCHARGE INSTRUCTION Encounter [id number] Admit Date April 16, 2023 3: 57:00 PM [place] Discharge Date April 16, 2023 8: 57:00 PM [facility] PATIENT EDUCATION SUMMARY Patient/Visit Information: Patient Name: JOHAN ARNOLD Diag: Attending Caregiver: JAMIE PAYNE MD Discharge Instruction Sheets Provided: *[place] Patient Portal *BR[facility] Social Determinants of Health *BRBN Suicidal Feelings: How to Help Yourself (LPNT) () Colonoscopy, Adult, Ifom-jv-Csyd General Anesthesia, Adult, Care After Smoking\Tobacco Cessation - [facility] () () Upper Endoscopy, Adult, Care After Patient Instructions: Followup Appointments/Instructions: CARE TEAM CARE linux systems administrator Role on Team Status Start Date End Date Update d By JAMIE PAYNE MD PHY Surgeon normal April 16, 2023 3:57:00 PM UT April 16, 2023 8:57:00 PM UT [id number] on April 24, 2023 3:20:11 PM [facility] MILA SIEGEL Y PCP normal April 14, 2023 4:23:22 PM [facility] April 16, 2023 8:57:00 PM [facility] [id number] on April 24, 2023 3:20:11 PM [facility] JAMIE PAYNE MD PHAngelo Referring normal April 14, 2023 4:23:22 PM [facility] April 16, 2023 8:57:00 PM [facility] [id number] on April 24, 2023 3:20:11 PM UTC JAMIE LEDESMA Attending normal April 14, 2023 4:23:21 PM [facility] April 16, 2023 8:57:00 PM [facility] [id number] on April 24, 2023 3:20:11 PM [facility] JAMIE LEDESMA Admitting normal April 14, 2023 4:23:21 PM [facility] April 16, 2023 8:57:00 PM [facility] [id number] on April 24, 2023 3:20:11 PM [facility]
--- NOTE | 2023-10-16 09:04 | ED_ITS ---
Discharge Plan Disposition Patient Disposition: Home, Self-Care Prescriptions Prescriptions: New hydrocodone-acetaminophen 5-325 mg tablet 1 tab PO Q6H PRN (Reason: pain) 3 Days Qty: 12 0RF No Action levothyroxine 50 MCG tablet 50 mcg PO DAILY omeprazole 20 MG capsule,delayed release(DR/EC) 20 mg PO DAILY bupropion HCl 150 MG tablet extended release 24 hr 150 mg PO DAILY citalopram 40 MG tablet 40 mg PO DAILY lisinopril 20 MG tablet 20 mg PO DAILY tramadol 50 MG tablet 50 mg PO Q4HP PRN (Reason: Moderate Pain) ergocalciferol (vitamin D2) 50,000 UNIT capsule 50,000 units PO WEEKLY oxycodone-acetaminophen 1 EACH tablet 1 tab PO Q4H PRN (Reason: Moderate Pain) Qty: 15 0RF Referrals Follow up/Referrals: Mary Carmen Charlton [Primary Care Provider] - See instructions Sundar Polanco DO [Staff Physician] - See instructions Kalin Warner MD [Staff Physician] - See instructions Activity Restrictions/Add. Instructions Additional Instructions/Restrictions: You have an unstable ankle fracture please remain nonweightbearing and to follow-up with our orthopedic surgeon Dr. Polanco. Also regarding your passing out episode please follow-up with our pool table operator Dr. Warner for further evaluation of your heart including a Holter monitor/event monitor and echo of your heart. Clinical Impressions Clinical Impression: Syncope, Ankle fracture, right Discharge ED Provider: Mikaela Chiu General Adult HPI General Chief complaint: Fall Stated complaint: AO 4am right foot pain, swelling Time Seen by Provider: 10/16/23 08:53 Mode of Arrival: Wheelchair Source of Information: Patient Limitations: No Limitations Description of Symptoms (Recalled from ER Triage Doc. by RN): pt presents to ED with c/o right ankle pain. pt reports she was awoken by her dog to go to the bathroom. pt reports feeling lightheaded, losing her balance and falling. pt unsure of what she hit. History of Present Illness HPI narrative: Patient is a 57-year-old female presenting today with syncope and right ankle pain after a fall. States she has been lightheaded for the last 24 to 48 hours. Believes that her blood sugar was low because she has been eating a lot of sugar lately. She also states she every once in a while and take an edible which may be contributory. Denies any chest pain shortness of breath any heart or lung problems underneath. No fevers or chills no nausea vomiting diarrhea etc. She states that she was up at 4 AM because her dog woke her up and she does not recall the events that happened after that but she was lightheaded down yourself up against the wall and had an injury to her right ankle. She denies any injuries elsewhere. Currently she has no symptoms other than being mildly lightheaded. Related Data Home Medications Medication Instructions Recorded Confirmed bupropion HCl 150 mg 24 hr tablet, 150 mg PO DAILY mood 03/30/21 03/30/21 extended release levothyroxine 50 mcg tablet 50 mcg PO DAILY THYROID 03/30/21 03/30/21 omeprazole 20 mg capsule,delayed 20 mg PO DAILY GERD 03/30/21 03/30/21 release citalopram 40 mg tablet 40 mg PO DAILY MOOD 03/31/21 03/31/21 ergocalciferol (vitamin D2) 1,250 50,000 units PO WEEKLY Supplement 03/31/21 03/31/21 mcg (50,000 unit) capsule lisinopril 20 mg tablet 20 mg PO DAILY Hypertension 03/31/21 03/31/21 tramadol 50 mg tablet 50 mg PO Q4HP PRN Moderate Pain 03/31/21 03/31/21 Previous Rx's Medication Instructions Recorded oxycodone-acetaminophen 5 mg-325 1 tab PO Q4H PRN Moderate Pain #15 04/01/21 mg tablet tabs hydrocodone 5 mg-acetaminophen 325 1 tab PO Q6H PRN pain 3 days #12 10/16/23 mg tablet tabs Allergies Allergy/AdvReac Type Severity Reaction Status Date / Time No Known Allergies Allergy Verified 10/16/23 09:02 [facility] Disclaimer: The information contained in this section may have been updated after the patient was seen, as this information can be updated by other users. Social History Smoking Status: Former smoker alcohol intake: current alcohol intake frequency: a few times a week substance use type: denies use current occupational status: employed Travel in the last 8 weeks: None housing: house ROS Obtained: Yes All systems reviewed & no additional complaints except as documented Physical Exam General General appearance: alert Respiratory Respiratory exam: Present normal lung sounds bilaterally; Absent respiratory distress Cardiovascular Cardiovascular exam: Present regular rate and normal rhythm Extremities Exam Extremities exam: Present other (Patient has pain with distal compression of the tib-fib location and significant right lateral malleolus swelling and tenderness also pain in the midfoot neurovascular intact) Neurological Exam Neurological exam: Present alert and oriented X3 Medical Decision Making Arley Inquiry Pt receiving controlled substance: No Vital Signs: 10/16/23 08:51 10/16/23 09:01 10/16/23 09:30 Temperature 98.0 F Temperature Source Oral Pulse Rate 105 H Pulse Rate [Left Radial] 106 H Respiratory Rate 13 Blood Pressure 121/89 108/81 L Blood Pressure [Right Arm] 109/83 L Blood Pressure Mean 90 Blood Pressure Mean [Right Arm] 91 02 Sat by Pulse Oximetry 100 99 Oxygen Delivery Method Room Air Room Air 10/16/23 10:00 10/16/23 10:30 10/16/23 11:00 Temperature Temperature Source Pulse Rate Pulse Rate [Left Radial] Respiratory Rate Blood Pressure 114/81 115/85 116/80 Blood Pressure [Right Arm] Blood Pressure Mean 91 95 90 Blood Pressure Mean [Right Arm] 02 Sat by Pulse Oximetry Oxygen Delivery Method Lab Data Lab Results 10/16/23 09:10: WBC 4.3 L, RBC 4.29, Hgb 13.0, Hct 38.9, MCV 90.6, MCH 30.3, MCHC 33.4, RDW 12.5, Plt Count 285, MPV 7.3 L, Neut % (Auto) 64.8, Lymph % (Auto) 25.2, [place] % (Auto) 8.4, Eos % (Auto) 0.8, Baso % (Auto) 0.8, Neut # (Auto) 2.8, Lymph # (Auto) 1.1, [place] # (Auto) 0.4, Eos # (Auto) 0.0, Baso # (Auto) 0.0, Sodium 132 L, Potassium 4.3, Chloride 99, Carbon Dioxide 25, Anion Gap 12.3, BUN 22 H, Creatinine 0.70, Estimated Creat Clear 90, Estimated GFR 87, Est GFR ( Amer) 105, Glucose 129 H, Calcium 9.5, Magnesium 1.7, Total Bilirubin 0.3, AST 27, ALT 25, Alkaline Phosphatase 60, Troponin I < 0.01, Total Protein 7.1, Albumin 4.3, Globulin 2.8, Albumin/Globulin Ratio 1.5, TSH 1.38 10/16/23 09:10 10/16/23 09:10 Orders (Tests/Meds): ED MEDICATIONS Generic Name Dose Route Start Last Admin Trade Name Jessica PRN Reason Stop Dose Admin Sodium Chloride 10 ml 10/16/23 09:13 Sodium Chloride 0.9% 10ml Flush Syringe IV 11/15/23 09:12 NEEDED PRN Maintain IV Site Discontinued Medications Generic Name Dose Route Start Last Admin Trade Name Jessica PRN Reason Stop Dose Admin Lactated Ringer's 1,000 mls @ 999 mls/hr 10/16/23 09:00 10/16/23 09:13 Lactated Ringer's 1000 Ml Bag IV 10/16/23 10:00 999 mls/hr .Q1H1M LIVIA Administration Ketorolac Tromethamine 15 mg 10/16/23 09:00 10/16/23 09:13 Ketorolac 30mg/Ml Vial IV 10/16/23 09:01 15 mg ONCE ONE Administration ORDERS Category Date Time Status Ankle XR -Right minimum 3 Views [XR ankle RT min 3V] Exams 10/16/23 09:00 Completed Stat Foot XR right minimum 3 views [XR foot RT min 3V] Stat Exams 10/16/23 09:00 Completed CBC w/Auto Diff [Complete Blood Count Auto Diff] Stat Lab 10/16/23 09:10 Completed CMP [Comprehensive Metabolic Panel] Stat Lab 10/16/23 09:10 Completed Magnesium Stat Lab 10/16/23 09:10 Completed TSH [Thyroid Stimulating Hormone] Stat Lab 10/16/23 09:10 Completed Trop I [Troponin I] Stat Lab 10/16/23 09:10 Completed Troponin I Q3H Lab 10/16/23 12:15 Ordered Troponin I Q3H Lab 10/16/23 15:15 Ordered ECG Data Tracing #1: I reviewed this ECG and interpreted as documented below: Ventricular rate 98 sinus rhythm normal axis no significant conduction abnormalities no acute ischemia Medical Decision Narrative: Well-appearing 57-year-old female presents today with syncope lightheadedness and right ankle injury. Ankle differential includes fracture dislocation sprain will get plain films to further evaluate. IV fluids Toradol have been administered. Also will obtain EKG and blood work for syncope workup. She has no signs or symptoms concerning for acute coronary syndrome primarily worried about an arrhythmia but with her lightheadedness that is unlikely. Blood pressure is stable at the moment and she looks good from a clinical standpoint assuming her basic workup is negative without any obvious electrode abnormality or emergent medical condition will have her follow-up with cardiology for Holter monitor and an echo. Labs and EKG unremarkable she will follow-up with cardiology for further evaluation and management of her heart. X-ray performed to person interpreted which shows distal fibular fracture there is a posterior component of this as well also medial joint space widening concerning for deltoid ligament injury this makes this an unstable angina she was placed in a posterior splint as well as a stirrup splint will be nonweightbearing will follow-up with orthopedic surgeon Dr. Polanco. Critical Care Critical Care Time Critical Care Time: No
--- NOTE | 2023-10-16 09:05 | ECG_ITS ---
APPROVED REPORT Exam: Resting ECG HR:98 bpm ECG Measurements Heart Rate 98 AXES WY 140 P 52 QRSd 92 QRS 34 QT 338 T 12 QTc 393 Conclusion SINUS RHYTHM POSSIBLE LEFT ATRIAL ENLARGEMENT [-0.1mV P-WAVE IN V1/V2] BORDERLINE ECG UNCONFIRMED REPORT Electronically signed by : Jacinto Chiu, 10/16/2023 15:03:22
[2023-10-16] MEDS: LACTATED RINGERS 1000ML 1,000 ML 999 ML IV (09:13)
[2023-10-16] MEDS: KETOROLAC 30MG/ML VIAL 15 MG IV (09:13)
--- NOTE | 2023-10-16 09:19 | PC.NURSE ---
Patient gone to XRay at this time.
[2023-10-16 09:22] LABS: Basophils % 0.8 % (0.1-2.0); Eosinophils % 0.8 % (0.1-12.0); Hematocrit 38.9 % (37.0-47.0); Lymphocytes # 1.1 K/mm3 (0.7-4.5); Lymphocytes % 25.2 % (10-50); Mean Corpuscular HGB Conc 33.4 g/dL (31.8-35.4); Mean Corpuscular Hemoglobin 30.3 pg (27.0-31.2); Mean Corpuscular Volume 90.6 fl (81-99); Mean Platelet Volume 7.3 fl (7.4-10.4); Monocytes # 0.4 K/mm3 (0.1-1.0); Monocytes % 8.4 % (1.7-9.3); Neutrophils # 2.8 K/mm3 (1.8-7.8); Neutrophils % 64.8 % (37.0-80.0); Platelet Count 285 K/mm3 (142-424); Red Blood Count 4.29 M/mm3 (4.20-5.40); Red Cell Distribution Width 12.5 % (11.5-17.5); White Blood Count 4.3 K/mm3 (4.8-10.8)
[2023-10-16 09:31] LABS: Chloride 99 mmol/L (98-107)
[2023-10-16 09:32] LABS: Potassium 4.3 mmoL/L (3.5-5.1); Sodium 132 mmol/L (136-145)
[2023-10-16 09:34] LABS: Alanine Aminotransferase 25 U/L (12-78); Aspartate Amino Transferase 27 U/L (14-36); Blood Urea Nitrogen 22 mg/dl (7-17); Creatinine Clearance Estimated 90 mL/min (50-200); Estimated Glomerular Filt Rate 87 ml/min (>60); GFR (African American) 105 ML/MIN (>60)
[2023-10-16 09:35] LABS: Albumin Level 4.3 g/dl (3.5-5.0); Albumin/Globulin Ratio 1.5 (1.1-1.8); Alkaline Phosphatase 60 U/L (38-126); Anion Gap 12.3 mEq/L (5-15); Bilirubin,Total 0.3 mg/dl (0.2-1.3); Calcium 9.5 mg/dl (8.4-10.2); Carbon Dioxide 25 mmol/L (22.0-30.0); Globulin 2.8 g/dL (1.3-3.2); Glucose 129 mg/dl (74-100); Magnesium 1.7 mg/dl (1.6-2.3); Total Protein,Serum 7.1 g/dl (6.3-8.2)
[2023-10-16 10:03] LABS: Troponin I < 0.01 ng/ml (0.00-0.034)
[2023-10-16 10:06] LABS: Thyroid Stimulating Hormone 1.38 uIU/mL (0.465-4.68)
== END 2023-10-16 11:56 | disposition home or self-care (01) ==
PROVIDERS: Emergency Provider Student in an Organized Health Care Education/Training Program; PCP Family Medicine
DX: S82.61XA Displaced fracture of lateral malleolus of right fibula, initial encounter for closed fracture (principal); R55 Syncope and collapse; M25.571 Pain in right ankle and joints of right foot; R42 Dizziness and giddiness; E87.1 Hypo-osmolality and hyponatremia; Z87.891 Personal history of nicotine dependence; W18.39XA Other fall on same level, initial encounter
CPT/HCPCS: 29515; 73610; 73630; 80053; 83735; 84443; 84484; 85025; 93005; 96361; 96374; 99284; J1885; J7120

== ENCOUNTER 2023-11-04 12:37 | Outpatient (CLI) | payer OTHER, SELFPAY ==
--- NOTE | 2023-11-04 12:45 | XR_ITS ---
FINAL REPORT CLINICAL HISTORY: Rt Ankle Fx COMPARISON: 10/16/2023 FINDINGS: RIGHT ANKLE: Three views of the right ankle were obtained. There is a nondisplaced fracture of the distal fibular metaphysis, stable in alignment since the prior exam of October 15. There is improvement in the lateral soft tissue swelling. The joint spaces and mortise are intact. IMPRESSION: Nondisplaced fracture of the distal fibular metaphysis, stable in alignment since the prior exam. Improved lateral soft tissue swelling. Reviewed, Interpreted and Dictated by Ren Hensley III, MD Transcribed by Marce Zuniga Authenticated and [facility]
== END 2023-11-04 23:59 | disposition home or self-care (01) ==
LOC: RAD 12:38
PROVIDERS: PCP Family Medicine; Visit Provider Physician Assistant
DX: M25.571 Pain in right ankle and joints of right foot (principal)
CPT/HCPCS: 73610

== ENCOUNTER 2023-11-25 12:33 | Outpatient (CLI) | payer OTHER, SELFPAY ==
--- NOTE | 2023-11-25 12:38 | XR_ITS ---
FINAL REPORT CLINICAL HISTORY: Rt Ankle Fx COMPARISON: 11/04/2023 FINDINGS: RIGHT ANKLE Three views reveal a longitudinal fracture of the distal fibula extending into the ankle mortise, mildly comminuted, similar in appearance to the prior exam of November 03. Mild degenerative changes present in the ankle. IMPRESSION: No significant change in appearance of the longitudinal fracture of the distal fibula as described above. Reviewed, Interpreted and Dictated by Gabriel Mitchell MD Transcribed by Marce Zuniga Authenticated and [facility]
== END 2023-11-25 23:59 | disposition home or self-care (01) ==
LOC: RAD 12:35
PROVIDERS: PCP Family Medicine; Visit Provider Orthopaedic Surgery
DX: M25.571 Pain in right ankle and joints of right foot (principal)
CPT/HCPCS: 73610

== ENCOUNTER 2023-11-28 14:37 | Emergency (ER) | payer OTHER, SELFPAY ==
[2023-11-28 14:40] VITALS: BP 188/123; PULSE 75; RESP 18; TEMP 36.7; O2SAT 98; BMI 28.3
--- NOTE | 2023-11-28 14:58 | XR_ITS ---
FINAL REPORT CLINICAL HISTORY: SMASH INJURY COMPARISON: No FINDINGS: RIGHT HAND Three views demonstrate no acute fracture or dislocation. There are moderate diffuse osteoarthritic changes, greater distal than proximal. The soft tissues are unremarkable. IMPRESSION: No acute bony abnormality. Reviewed, Interpreted and Dictated by Gabriel Mitchell MD Transcribed by Caitlin Rodríguez Authenticated and [facility]
[2023-11-28] MEDS: KETOROLAC 30MG/ML VIAL 15 MG IM (15:02)
[2023-11-28 15:15] VITALS: BP 194/113; PULSE 65; O2SAT 97
--- NOTE | 2023-11-28 15:22 | PC.NURSE ---
XR AT BEDSIDE
--- NOTE | 2023-11-28 15:22 | HMH.EDGENADL ---
Discharge Plan Disposition Patient Disposition: Home, Self-Care Condition: Good Prescriptions Prescriptions: No Action hydrocodone-acetaminophen 5-325 mg tablet 1 tab PO Q6H PRN (Reason: pain) 3 Days Qty: 12 0RF levothyroxine 50 MCG tablet 50 mcg PO DAILY omeprazole 20 MG capsule,delayed release(DR/EC) 20 mg PO DAILY bupropion HCl 150 MG tablet extended release 24 hr 150 mg PO DAILY citalopram 40 MG tablet 40 mg PO DAILY lisinopril 20 MG tablet 20 mg PO DAILY tramadol 50 MG tablet 50 mg PO Q4HP PRN (Reason: Moderate Pain) ergocalciferol (vitamin D2) 50,000 UNIT capsule 50,000 units PO WEEKLY oxycodone-acetaminophen 1 EACH tablet 1 tab PO Q4H PRN (Reason: Moderate Pain) Qty: 15 0RF Referrals Follow up/Referrals: Mary Carmen Charlton [Primary Care Provider] - See instructions Activity Restrictions/Add. Instructions Additional Instructions/Restrictions: You were evaluated in the emergency department today. You do not have any fractures noted on x-ray, but it is possible you strain/sprain your thumb. Sometimes fractures can be missed on initial x-ray as well. Please follow-up very closely with your primary care provider for reassessment. Return to the emergency department for new or worsening symptoms. Clinical Impressions Clinical Impression: Pain of right thumb Stand Alone Forms Stand Alone Forms: Work/School Release Instructions Patient Instructions: DI for Finger Sprain, DI for Acute Pain -- Adult Print Language Print Language: Maori Discharge ED Provider: Norma Muñiz General Adult HPI General Chief complaint: PAIN Stated complaint: AO 11/27 Left thumb pain/swelling Time Seen by Provider: 11/28/23 15:03 Mode of Arrival: Ambulatory Limitations: No Limitations Description of Symptoms (Recalled from ER Triage Doc. by RN): PT REPORTS SMASHING RIGHT THUMB YESTERDAY History of Present Illness HPI narrative: This patient is a 58-year-old female with a history of hypertension presenting to the emergency department for evaluation with concern for right thumb injury. Patient reports that she was going to change and gear in their gator when she stubbed her thumb on the gear shifter and felt a crack. She states that she feels like it is broken. No other injuries noted. No numbness, tingling, or other concerns. Of note, she does mention that her blood pressure is high, but she states that she has not taken her medicine yet as she is refilling it today. She is on lisinopril at home. Related Data Home Medications ?Medication ?Instructions ?Recorded ?Confirmed bupropion HCl 150 mg 24 hr tablet, 150 mg PO DAILY mood 03/30/21 11/25/23 extended release levothyroxine 50 mcg tablet 50 mcg PO DAILY THYROID 03/30/21 11/25/23 omeprazole 20 mg capsule,delayed 20 mg PO DAILY GERD 03/30/21 11/25/23 release citalopram 40 mg tablet 40 mg PO DAILY MOOD 03/31/21 11/25/23 ergocalciferol (vitamin D2) 1,250 50,000 units PO WEEKLY Supplement 03/31/21 11/25/23 mcg (50,000 unit) capsule lisinopril 20 mg tablet 20 mg PO DAILY Hypertension 03/31/21 11/25/23 tramadol 50 mg tablet 50 mg PO Q4HP PRN Moderate Pain 03/31/21 11/25/23 Previous Rx's ?Medication ?Instructions ?Recorded oxycodone-acetaminophen 5 mg-325 1 tab PO Q4H PRN Moderate Pain #15 04/01/21 mg tablet tabs hydrocodone 5 mg-acetaminophen 325 1 tab PO Q6H PRN pain 3 days #12 10/16/23 mg tablet tabs Allergies Allergy/AdvReac Type Severity Reaction Status Date / Time No Known Allergies Allergy Verified 11/25/23 13:06 [facility] Disclaimer: The information contained in this section may have been updated after the patient was seen, as this information can be updated by other users. Social History Smoking Status: Former smoker alcohol intake: current alcohol intake frequency: a few times a week substance use type: denies use current occupational status: employed Travel in the last 8 weeks: None housing: house ROS Obtained: Yes All systems reviewed & no additional complaints except as documented Physical Exam General General appearance: alert and in no apparent distress Head Head exam: atraumatic and normocephalic Eye Eye exam: Present normal appearance, PERRL and EOMI ENT ENT exam: Present normal exam, normal oropharynx, mucous membranes moist and normal external ear exam Neck Neck exam: Present normal inspection, full ROM and trachea midline; Absent tenderness Chest Chest inspection: Present normal inspection and symmetric chest wall rise; Absent tenderness Respiratory Respiratory exam: Present normal lung sounds bilaterally; Absent respiratory distress, wheezes, stridor or accessory muscle use Cardiovascular Cardiovascular exam: Present regular rate and normal rhythm Abdominal Exam Abdominal exam: Present soft; Absent distention, tenderness or guarding Extremities Exam Extremities exam: Present tenderness (Bruising and tenderness to palpation of the DIP of the right thumb), normal capillary refill and other (All compartments soft, neurovascularly intact distally.); Absent full ROM (Limited range of motion of the right thumb secondary to pain) or edema Back Exam Back exam: Present normal inspection and full ROM; Absent tenderness Neurological Exam Neurological exam: Present alert, oriented X3, CN II-XII intact and normal gait; Absent motor sensory deficit Psychiatric Psychiatric exam: Present normal affect and normal mood Skin Skin exam: Present warm and dry Medical Decision Making Medical Records Medical records reviewed: Yes I reviewed the patient's medical records. Arley Inquiry Pt receiving controlled substance: No Vital Signs: 11/28/23 14:40 11/28/23 15:15 11/28/23 15:30 Temperature 98.1 F Temperature Source Oral Pulse Rate 65 72 Pulse Rate [Radial] 75 Respiratory Rate 18 Blood Pressure 194/113 H 201/113 H Blood Pressure [Left Arm] 188/123 H Blood Pressure Mean [Left Arm] 144 Blood Pressure Source Blood Pressure Source [Left Arm] Automatic Cuff Blood Pressure Position Blood Pressure Position [Left Arm] Sitting 02 Sat by Pulse Oximetry 98 97 97 Oxygen Delivery Method Room Air Room Air Room Air 11/28/23 16:01 11/28/23 16:30 11/28/23 16:46 Temperature 98.1 F Temperature Source Oral Pulse Rate 70 70 72 Pulse Rate [Radial] Respiratory Rate 18 Blood Pressure 176/107 H 174/106 H 174/106 H Blood Pressure [Left Arm] Blood Pressure Mean [Left Arm] Blood Pressure Source Automatic Cuff Blood Pressure Source [Left Arm] Blood Pressure Position Sitting Blood Pressure Position [Left Arm] 02 Sat by Pulse Oximetry 97 98 Oxygen Delivery Method Room Air Lab Data Lab results reviewed: Yes I reviewed the patient's lab results. Orders (Tests/Meds): ED MEDICATIONS Discontinued Medications Generic Name Dose Route Start Last Admin Trade Name Freq PRN Reason Stop Dose Admin Ketorolac Tromethamine 15 mg 11/28/23 14:59 11/28/23 15:02 Ketorolac 30mg/Ml Vial IM 11/28/23 15:00 15 mg ONCE ONE Administration ORDERS Category Date Time Status XR hand RT min 3V Stat Exams 11/28/23 14:58 Completed Medical Decision Narrative: In summary, this patient is a 58-year-old female presenting to the Emergency Department for evaluation of right thumb pain. Differential diagnoses considered include but are not limited to fracture, contusion, strain/pain, dislocation, neurovascular injury, tendon injury. Ruling out the most morbid conditions drove assessment. It should be noted patient's history includes high blood pressure which is not at goal therapy. This complicates all aspects of care by increasing patient's risk for morbidity. On exam, the patient is resting comfortably. She has tenderness to palpation of her right thumb with bruising and swelling at the DIP. She has intact motor function but range of motion is limited secondary to pain. She is neurovascularly intact distally. Workup included x-rays of the right hand. She was given IM Toradol for symptomatic improvement of pain. I independently interpreted x-ray prior to the radiologist read and noted no obvious fracture. Please see their read for final interpretation. On reassessment, patient has continued pain with some improvement after Toradol. Given the amount of swelling that she has, she was given a foam splint for support and immobilization. Possible she could have occult fracture that is missed on initial x-ray. I advised that she follow-up closely with either orthopedics or primary care for further assessment. At this time, patient was deemed to be appropriate for discharge. Patient was given strict return precautions and was discharged with supportive management. Critical Care Critical Care Time Critical Care Time: No
[2023-11-28 15:30] VITALS: BP 201/113; PULSE 72; O2SAT 97
[2023-11-28 16:01] VITALS: BP 176/107; PULSE 70; O2SAT 97
[2023-11-28 16:30] VITALS: BP 174/106; PULSE 70; O2SAT 98
[2023-11-28 16:46] VITALS: BP 174/106; PULSE 72; RESP 18; TEMP 36.7; O2SAT 99
== END 2023-11-28 16:50 | disposition home or self-care (01) ==
PROVIDERS: Emergency Provider Emergency Medicine; PCP Family Medicine
DX: M79.645 Pain in left finger(s) (principal); I10 Essential (primary) hypertension; W22.8XXA Striking against or struck by other objects, initial encounter
CPT/HCPCS: 73130; 96372; 99283; J1885

== ENCOUNTER 2023-12-16 12:52 | Outpatient (CLI) | payer OTHER, SELFPAY ==
--- NOTE | 2023-12-16 13:10 | XR_ITS ---
FINAL REPORT CLINICAL HISTORY: Rt Ankle Pain, broke 12 weeks ago, cast removed today COMPARISON: 11/25/2023 FINDINGS: RIGHT ANKLE: Three views of the right ankle were obtained. There is a subacute oblique fracture of the distal fibular metaphysis. Compared with the prior film of November 24 there has been some callus formation indicating interval healing. The joint spaces and mortise are intact. There is no soft tissue abnormality. IMPRESSION: Subacute oblique fracture of the distal fibular metaphysis, with callus formation occurring since the prior film of November 24. Reviewed, Interpreted and Dictated by Ren Hensley III, MD Transcribed by Marce Zuniga Authenticated and [facility]
== END 2023-12-16 23:59 | disposition home or self-care (01) ==
LOC: RAD 12:53
PROVIDERS: PCP Family Medicine; Visit Provider Physician Assistant
DX: M25.571 Pain in right ankle and joints of right foot (principal)
CPT/HCPCS: 73610

== ENCOUNTER 2023-12-16 14:24 | Outpatient (RCR) | payer OTHER, SELFPAY | END 2023-12-16 15:30 | disposition home or self-care (01) | LOC: PT 14:24 | PROVIDERS: Visit Provider Physician Assistant | DX: M25.571 Pain in right ankle and joints of right foot (principal); Z98.890 Other specified postprocedural states | CPT/HCPCS: 97760 ==